=== PATIENT | male | born 1940 | race Caucasian/White ===

== ENCOUNTER 2016-06-21 06:16 | Day surgery (SDC) | payer MEDICARE, OTHER ==
[2016-06-21] MEDS ORDERED: LACTATED RINGERS 1,000 ML IV ONE (06:59)
[2016-06-21] MEDS ORDERED: KETOROLAC 0.45% OPHTH DROPS OPTH ONE (07:00)
[2016-06-21] MEDS ORDERED: CYCLOPENTOLATE 1% OPHTH DROPS 2 ML OPTH ONE (07:00)
[2016-06-21] MEDS ORDERED: TROPICAMIDE 1% OPHTH 2 ML DROPS OPTH ONE (07:00)
[2016-06-21] MEDS ORDERED: TRYPAN BLUE 0.5 ML SYRINGE IO ONE ×2 (08:50→09:20)
[2016-06-21] MEDS ORDERED: LACTATED RINGERS 500 ML IV ONE (09:04)
[2016-06-21] MEDS ORDERED: MIDAZOLAM 2 MG/2 ML VIAL IVP ONE (09:09)
[2016-06-21] MEDS ORDERED: EPINEPHrine 1 MG/ML AMP IO ONE (09:09)
[2016-06-21] MEDS ORDERED: fentaNYL 100 MCG/2 ML VIAL IVP ONE (09:09)
[2016-06-21] MEDS ORDERED: levoFLOXacin 0.5% OPHTH DROPS 5 ML OPTH ONE (09:09)
[2016-06-21] MEDS ORDERED: NEOMYCIN/POLYMYX/DEXAMETH OPHTH OINT OPTH ONE (09:09)
[2016-06-21] MEDS ORDERED: PROPARACAINE 0.5% OPHTH DROPS 15 ML OPTH ONE (09:09)
[2016-06-21] MEDS ORDERED: BRIMONIDINE 0.2% OPHTH DROPS 5 ML OPTH ONE (09:09)
[2016-06-21] MEDS ORDERED: TETRACAINE OPHTH DROPS 2 ML OPTH ONE (09:09)
[2016-06-21] MEDS ORDERED: CHONDR SULF/HYALURONATE SYRINGE IO ONE (09:09)
[2016-06-21] MEDS ORDERED: BSS/LIDOCAINE/EPINEPHRINE 1 ML SYRINGE IO ONE ×2 (09:12)
== END 2016-06-21 06:17 | disposition home or self-care (01) ==
PROC: 08RK3JZ Replacement of Left Lens with Synthetic Substitute, Percutaneous Approach (ICD-10-PCS; principal; 2016-06-21 07:30)
DX: H25.12 Age-related nuclear cataract, left eye (principal); I48.91 Unspecified atrial fibrillation; R06.00 Dyspnea, unspecified
CPT/HCPCS: 66982; J7120; V2632

== ENCOUNTER 2017-09-14 09:20 | Outpatient (CLI) | payer MEDICARE, OTHER ==
[2017-09-14 12:47] LABS: BASOPHILS # (AUTO) 0.1 10^3/uL (0.0-0.1); BASOPHILS % (AUTO) 1.4 %; EOSINOPHILS # (AUTO) 0.1 10^3/uL (0.0-0.7); EOSINOPHILS % (AUTO) 1.9 %; HGB - HEMOGLOBIN 15.1 g/dL (14.0-18.0); LYMPHOCYTES % (AUTO) 19.5 %; MEAN CORPUSCULAR HEMOGLOBIN 29.6 pg (27.0-31.0); MEAN CORPUSCULAR HGB CONC 33.6 g/dL (32.0-36.0); MEAN CORPUSCULAR VOLUME 88.2 fL (80.0-94.0); MEAN PLATELET VOLUME 9.5 fL (7.4-11.4); MONOCYTES # (AUTO) 0.9 10^3/uL (0.0-1.0); MONOCYTES % (AUTO) 16.6 %; NEUTROPHILS # (AUTO) 3.2 10^3/uL (1.5-6.6); NEUTROPHILS % (AUTO) 60.6 %; PLT - PLATELET COUNT 183 10^3/uL (130-450); RED BLOOD COUNT 5.09 10^6/uL (4.70-6.10); RED CELL DISTRIBUTION WIDTH 13.8 % (12.0-15.0); WHITE BLOOD COUNT 5.3 x10^3/uL (4.8-10.8)
[2017-09-14 12:51] LABS: ALBUMIN 3.9 g/dL (3.2-5.5); ALBUMIN/GLOBULIN RATIO 1.4 (1.0-2.2); TOTAL PROTEIN 6.7 g/dL (6.7-8.2)
[2017-09-14 13:01] LABS: THYROID STIMULATING HORMONE 2.51 uIU/mL (0.34-5.60)
== END 2017-09-14 09:21 | disposition home or self-care (01) ==
LOC: LAB.WCP 09:20
PROVIDERS: ATTEND Family Medicine
DX: R41.3 Other amnesia (principal)
CPT/HCPCS: 36415; 80053; 81599; 82607; 83921; 84443; 85025; 85651; 86592

== ENCOUNTER 2017-09-20 16:33 | Outpatient (CLI) | payer MEDICARE, OTHER ==
--- NOTE | 2017-09-21 09:22 | MRI Report ---
EXAM: MRI BRAIN WITHOUT CONTRAST EXAM DATE: 09/20/2017 05:17 PM. CLINICAL HISTORY: Confusion, disorientation and memory loss. Atrial fibrillation. COMPARISON: None. TECHNIQUE: Multiplanar, multisequence T1-weighted and fluid-sensitive MR sequences of the brain were performed. Sequences optimized for routine evaluation. Other: None. IV Contrast: None. FINDINGS: Brain Volume: Mild diffuse atrophy. Parenchyma/Dura: No restricted diffusion to suggest acute or recent ischemic infarct. There is no manuel dence for acute hemorrhage. In the right temporo-occipital region there is a punctate focus of GRE hy pointensity that may be a chronic/senescent microhemorrhage. No mass effect, midline shift or abnorma l subdural fluid collection. 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 Largest on the right p osteriorly is 5 mm. The largest on the left is about 6 mm. No evidence for previous cerebral hemisphere cortical ischemic infarct. Mild patchy and nodular bilateral cerebral white matter T2 hyperintense signal changes are present, c onsistent with aging and mild chronic multifocal small vessel ischemic white matter disease. Ventricles/Cisterns: No hydrocephalus. No abnormal extra-axial fluid collection or hemorrhage. Orbits: Prior bilateral lens extractions. Scleral buckle on the left. Sella Turcica: The pituitary gland, cavernous sinuses, suprasellar cistern and optic chiasm are unrem arkable. IAC: Symmetric and unremarkable. Vasculature: Normal signal flow void is seen in the major arterial structures at the skull base. Sinuses: No acute appearing sinus disease. Bones: No focal pathologic appearing marrow signal changes. Other: None. IMPRESSION: 1. No MRI evidence for acute intracranial abnormality. 2. 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 3. Mild diffuse cerebral atrophy. 4. Mild nonspecific chronic appearing cerebral white matter disease, likely from aging and chronic mi croangiopathy. [facility] Referring Provider Line: [phone] SITE ID: [id number]
== END 2017-09-20 16:34 | disposition home or self-care (01) ==
LOC: DI 16:33
PROVIDERS: ATTEND Family Medicine
DX: R41.3 Other amnesia (principal); I48.0 Paroxysmal atrial fibrillation
CPT/HCPCS: 70551

== ENCOUNTER 2017-09-27 12:55 | Outpatient (CLI) | payer MEDICARE, OTHER | END 2017-09-27 12:56 | disposition home or self-care (01) | LOC: DI 12:55 | PROVIDERS: ATTEND Internal Medicine Cardiovascular Disease | DX: I48.91 Unspecified atrial fibrillation (principal); Z86.79 Personal history of other diseases of the circulatory system; F99 Mental disorder, not otherwise specified; I35.9 Nonrheumatic aortic valve disorder, unspecified; R41.3 Other amnesia; I48.0 Paroxysmal atrial fibrillation; I38 Endocarditis, valve unspecified; Z95.4 Presence of other heart-valve replacement | CPT/HCPCS: 93306 ==

== ENCOUNTER 2017-09-27 14:25 | Emergency (ER) | payer MEDICARE, OTHER ==
[2017-09-27] MEDS ORDERED: SODIUM CHLORIDE 0.9% 1,000 ML IV ONE (15:16)
[2017-09-27] MEDS ORDERED: METOPROLOL 5 MG/5 ML VIAL IVP STA ×3 (15:16→15:49)
[2017-09-27 15:27] LABS: BASOPHILS # (AUTO) 0.1 10^3/uL (0.0-0.1); BASOPHILS % (AUTO) 1.2 %; EOSINOPHILS # (AUTO) 0.1 10^3/uL (0.0-0.7); EOSINOPHILS % (AUTO) 1.7 %; HGB - HEMOGLOBIN 15.5 g/dL (14.0-18.0); LYMPHOCYTES # (AUTO) 1.2 10^3/uL (1.5-3.5); LYMPHOCYTES % (AUTO) 18.2 %; MEAN CORPUSCULAR HEMOGLOBIN 29.2 pg (27.0-31.0); MEAN CORPUSCULAR VOLUME 88.3 fL (80.0-94.0); MEAN PLATELET VOLUME 9.3 fL (7.4-11.4); MONOCYTES % (AUTO) 14.7 %; NEUTROPHILS # (AUTO) 4.4 10^3/uL (1.5-6.6); NEUTROPHILS % (AUTO) 64.2 %; PLT - PLATELET COUNT 207 10^3/uL (130-450); RED BLOOD COUNT 5.33 10^6/uL (4.70-6.10); RED CELL DISTRIBUTION WIDTH 13.9 % (12.0-15.0); WHITE BLOOD COUNT 6.8 x10^3/uL (4.8-10.8)
[2017-09-27 15:38] LABS: ALBUMIN 3.9 g/dL (3.2-5.5); ALBUMIN/GLOBULIN RATIO 1.3 (1.0-2.2); BILIRUBIN,TOTAL 0.4 mg/dL (0.2-1.0); CALCIUM 8.8 mg/dL (8.5-10.3); MAGNESIUM 2.4 mg/dL (1.7-2.8); TOTAL PROTEIN 6.9 g/dL (6.7-8.2)
[2017-09-27] MEDS ORDERED: METOPROLOL TARTRATE 50 MG TABLET PO STA (16:06)
--- NOTE | 2017-09-27 16:17 | ED Physician Documentation ---
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 He had recently been tapered off Sotolol due to QT prolongation and had nothad atrial fib episodes. He was getting outpt echo and went into atrial fib rate 150s. He was feeling okay with just some lightheadedness. said he had similar with heart rate 140 lasting 6 minutes about 2 days ago. Otherwise is feeling okay. He is to do outpt heart monitor for 2 weeks starting tomorrow.) Timing - onset during: Light activity Timing - details: Abrupt onset, Still present Quality: Other (mild lightheadedness). No: Pressure, Tightness Improved by: Rest Worsened by: Exertion Associated symptoms: Feeling faint / dizzy, General Weakness. No: Shortness of air, Nausea, Palpitations, Cough Similar symptoms before: Diagnosis (atrial fib paroxysms) Recently seen: Clinic (cardiology a few weeks ago) Review of Systems Constitutional: denies: Fever, Chills Nose: denies: Rhinorrhea / runny nose, Congestion Throat: denies: Sore throat Cardiac: reports: Palpitations. denies: Chest pain / pressure, Pedal edema, Calf pain Respiratory: denies: Dyspnea, Cough GI: denies: Abdominal Pain, Nausea, Vomiting, Diarrhea Neurologic: denies: Focal weakness, Numbness, Difficulty speaking, Near syncope PD PAST MEDICAL HISTORY - Past Medical History Cardiovascular: Atrial fibrillation, Valve disorder, Other Respiratory: Shortness of breath, Other Endocrine/Autoimmune: None GI: None : Kidney stones, Other HEENT: Glaucoma, Chronic hearing loss Psych: None Musculoskeletal: None Derm: Other - Past Surgical History General: Colonoscopy Cardiovascular: Valve replacement HEENT: Cataracts - Present Medications Home Medications: Ambulatory Orders Medication Instructions Recorded Confirmed Aspirin [Aspir 81] 81 mg PO DAILY 07/29/14 06/21/16 Latanoprost [Xalatan] 2.5 ml LEFTEYE DAILY 07/29/14 06/21/16 Magnesium Oxide 400 mg PO DAILY 07/29/14 06/21/16 Multivitamin [Multivitamins] 1 each PO DAILY 07/29/14 06/21/16 Sotalol [Betapace] 40 mg PO BID 07/29/14 06/21/16 Timolol 0.5% Ophth Drops [Timoptic 1 drop EACHEYE DAILY 07/29/14 06/21/16 0.5% Ophth Drops] Metoprolol Tartrate [Lopressor] 25 mg PO BID #60 tablet 09/27/17 - Allergies Allergies/Adverse Reactions: Allergies Allergy/AdvReac Type Severity Reaction Status Date / Time No Known Drug Allergies Allergy Verified 07/29/14 10:31 - Social History Does the pt smoke?: No Smoking Status: Never smoker PD ED PE NORMAL - Vitals Vital signs reviewed: Yes - General General: Alert and oriented X 3, No acute distress, Well developed/nourished - Neck Neck: Supple, no meningeal sign, No adenopathy - Cardiac Cardiac: No murmur. 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 No: ST elevation c/w ischemia, ST depression repeat Rate: Rate (enter#) (64) Rhythm: NSR Intervals: Normal SC QRS: Normal Ischemia: Normal ST segments. No: ST elevation c/w ischemia, ST depression Compare to prior EKG: Changed from prior EKG - Labs Labs: Laboratory Tests 09/27/17 09/27/17 15:00 15:00 WBC 6.8 RBC 5.33 Hgb 15.5 Hct 47.0 MCV 88.3 MCH 29.2 MCHC 33.0 RDW 13.9 Plt Count 207 MPV 9.3 Neut # 4.4 Lymph # 1.2 L Brown # 1.0 Eos # 0.1 Baso # 0.1 Absolute Nucleated RBC 0.00 Nucleated RBC % 0.0 Sodium 137 Potassium 4.0 Chloride 106 Carbon Dioxide 25 Anion Gap 6.0 BUN 26 H Creatinine 1.0 Estimated GFR (MDRD) 72 L Glucose 99 Calcium 8.8 Magnesium 2.4 Total Bilirubin 0.4 AST 20 ALT 16 Alkaline Phosphatase 80 Total Protein 6.9 Albumin 3.9 Globulin 3.0 Albumin/Globulin Ratio 1.3 Lipase 33 PD MEDICAL DECISION MAKING - ED course Complexity details: reviewed results, re-evaluated patient, considered differential, d/w patient, d/w clinical application consultant (Dr. Brand (?) tactical air control party Cardiology - to start Lopressor 25 mg bid and still do heart monitor. ) Departure - Departure Disposition: Home, Self Care Clinical Impression: Paroxysmal atrial fibrillation with rapid ventricular response Condition: Stable Record reviewed to determine appropriate education?: Yes Instructions: ED Afib Follow-Up: Hector Prieto MD [Primary Care Provider] - Chano Santiago MD [Physician No Access] - Prescriptions: Metoprolol Tartrate [Lopressor] 25 mg PO BID #60 tablet Comments: Drink lots of fluids drink lots of fluids and other usual medicines. Add metoprolol 25 mg twice a day. Check your heart rate and blood pressure daily. If you find your heart rate to slow her blood pressure too low, then decrease to once a day. Continue with a heart monitor as scheduled. Follow-up with Dr. Santiago, call his office to find out the appointment time they would prefer. Recheck if recurrent problems.
[2017-09-27 16:33] VITALS: BP 107/70
== END 2017-09-27 16:40 | disposition home or self-care (01) ==
LOC: ED 14:25
DX: I48.0 Paroxysmal atrial fibrillation (principal); Z95.2 Presence of prosthetic heart valve; Z79.82 Long term (current) use of aspirin; Z86.79 Personal history of other diseases of the circulatory system; F99 Mental disorder, not otherwise specified; I35.9 Nonrheumatic aortic valve disorder, unspecified; R41.3 Other amnesia; I38 Endocarditis, valve unspecified; Z95.4 Presence of other heart-valve replacement
CPT/HCPCS: 36415; 80053; 83690; 83735; 85025; 93005; 93306; 96361; 96374; 99283; 99284; A9270

== ENCOUNTER 2017-10-04 19:12 | Outpatient (CLI) | payer MEDICARE, OTHER ==
--- NOTE | 2017-10-07 12:40 | Ultrasound Report ---
CAROTID DUPLEX: 10/04/2017 INDICATION: Memory loss. TECHNIQUE: Real-time sonographic vascular imaging was performed by the scientific manager through the carotid arteries utilizing both color-flow and Doppler spectral analysis. Multiple sales representative marine supplies static images were saved for review. RIGHT Vessel PSV cm/sec EDV cm/sec ICA/CCA RSV Ratio Degree of Stenosis Plaque Estimate % RCCA Prox 105 -- -- RCCA Dist 75 14 -- RECA 34 -- -- RT BULB 42 11 0.6 KRUPA Prox 77 17 1.0 KRUPA Mid 103 27 1.4 KRUPA Dist 57 13 0.8 RVA 40 -- -- RVA flow direction: Antegrade LEFT Vessel PSV cm/sec EDV cm/sec ICA/CCA RSV Ratio Degree of Stenosis Plaque Estimate % LCCA Prox 94 -- -- LCCA Dist 88 18 -- LECA 93 -- -- LFT BULB 41 5 0.5 LICA Prox 93 25 1.1 LICA Mid 133 34 1.5 LICA Dist 106 29 1.2 LVA 28 -- -- LVA flow direction: Antegrade Velocity criteria are extrapolated from diameter data as defined by the Society of Radiologists in Ultrasound Consensus Conference Radiology 2003; 229; 340-346. Degree of Stenosis % ICA PSV cm/sec ICA EDV cm/sec ICA/CCA PSV Ratio Plaque Estimate % Normal < 125 < 40 < 2.0 None <50 < 125 < 40 < 2.0 < 50 50-69 125-130 40-100 2.0-4.0 >/=50 >/=70 but less than near occlusion > 230 > 100 > 4.0 >/=50 Near occlusion High, low or undetectable Variable Variable Visible Total occlusion Undetectable Not applicable Not applicable No detectable lumen FINDINGS RIGHT: There is calcified plaquing in the right carotid bifurcation, without evidence of a focal hemodynamically significant carotid stenosis by velocity criteria. LEFT: There is calcified plaquing in the left carotid bifurcation, without evidence of a focal hemodynamically significant stenosis by velocity criteria. The vertebral arteries demonstrate antegrade flow bilaterally. IMPRESSION: CALCIFIED PLAQUING BILATERALLY, WITHOUT EVIDENCE OF A FOCAL HEMODYNAMICALLY SIGNIFICANT CAROTID STENOSIS BY VELOCITY CRITERIA. TD: 10/05/2017 10:13 [facility]
== END 2017-10-04 19:13 | disposition home or self-care (01) ==
LOC: DI 19:12
PROVIDERS: ATTEND Family Medicine
DX: I65.21 Occlusion and stenosis of right carotid artery (principal)
CPT/HCPCS: 93880

== ENCOUNTER 2017-11-19 10:53 | Outpatient (CLI) | payer MEDICARE, OTHER | END 2017-11-19 10:54 | disposition home or self-care (01) | LOC: SC 10:53 | PROVIDERS: ATTEND Internal Medicine Pulmonary Disease | DX: G47.10 Hypersomnia, unspecified (principal); G47.8 Other sleep disorders; R06.83 Snoring | CPT/HCPCS: 99203; G0463; 99212 ==

== ENCOUNTER 2017-12-18 20:21 | Outpatient (CLI) | payer MEDICARE, OTHER | END 2017-12-18 20:22 | disposition home or self-care (01) | LOC: SC 20:21 | PROVIDERS: ATTEND Internal Medicine Pulmonary Disease | DX: G47.33 Obstructive sleep apnea (adult) (pediatric) (principal); G47.61 Periodic limb movement disorder | CPT/HCPCS: 95810 ==

== ENCOUNTER 2017-12-31 13:09 | Outpatient (CLI) | payer MEDICARE, OTHER | END 2017-12-31 13:10 | disposition home or self-care (01) | LOC: SC 13:09 | PROVIDERS: ATTEND Nurse Practitioner Family | DX: G47.33 Obstructive sleep apnea (adult) (pediatric) (principal); I49.9 Cardiac arrhythmia, unspecified; G47.61 Periodic limb movement disorder | CPT/HCPCS: 99214; G0463; 99212 ==

== ENCOUNTER 2018-10-02 15:35 | Outpatient (CLI) | payer MEDICARE, OTHER ==
--- NOTE | 2018-10-03 13:03 | XRAY Report ---
Reason: COUGH Procedure Date: 10/02/2018 Accession Number: [id number] / [id number] Procedure: WCP - Chest 2 View X-Ray CPT Code: 70777 FULL RESULT: EXAM: CHEST RADIOGRAPHY EXAM DATE: 10/02/2018 03:47 PM. CLINICAL HISTORY: Cough, shortness of breath. COMPARISON: CHEST 2 VIEW PA/LAT 03/21/2017 2:10 PM. TECHNIQUE: 2 views. FINDINGS: Lungs/Pleura: Minimal to small mild focal opacities in the left lung base and likely with minimal amount of left pleural effusion evident. No right pleural effusion. No right pneumothorax. Mediastinum: Heart and mediastinal contours are unremarkable. Other: Postop changes of sternotomy for CABG again noted, unremarkable. There is a new left subclavian pacemaker with 2 cardiac leads ending in the right atrial appendage in the right ventricle. IMPRESSION: 1. Imaging artifact versus interval new small left basilar opacity and minimal left pleural effusion. Focal mild infiltrative process cannot be excluded. Otherwise, negative for cardiomegaly or pulmonary edema. Recommend continued chest x-ray in 2 weeks and follow up in 4-5 weeks, if clinically warranted. 2. Interval status post left subclavian pacemaker implant, unremarkable. [facility]
== END 2018-10-02 15:36 | disposition home or self-care (01) ==
LOC: DI.WCP 15:35
PROVIDERS: ATTEND Family Medicine
DX: R05 Cough (principal); Z95.0 Presence of cardiac pacemaker
CPT/HCPCS: 71046

== ENCOUNTER 2018-10-17 11:24 | Outpatient (CLI) | payer MEDICARE, OTHER ==
--- NOTE | 2018-10-17 11:14 | XRAY Report ---
Reason: PNEUMONIA,LEFT LOWER LOBE Procedure Date: 10/17/2018 Accession Number: [id number] / [id number] Procedure: WCP - Chest 2 View X-Ray CPT Code: 80716 FULL RESULT: EXAM: CHEST RADIOGRAPHY EXAM DATE: 10/17/2018 11:07 AM. CLINICAL HISTORY: Follow-up abnormal chest x-ray. Possible pneumonia. COMPARISON: CHEST 2 VIEW 10/02/2018 3:33 PM. TECHNIQUE: 2 views. FINDINGS: Lungs/Pleura: No focal opacities evident. No pleural effusion. No pneumothorax. Normal volumes. Mediastinum: Heart and mediastinal contours are unremarkable. Other: None. IMPRESSION: Normal 2-view chest radiography. [facility]
== END 2018-10-17 23:59 | disposition home or self-care (01) ==
LOC: DI.WCP 11:24
PROVIDERS: ATTEND Family Medicine
DX: J18.9 Pneumonia, unspecified organism (principal)
CPT/HCPCS: 71046

== ENCOUNTER 2022-07-18 11:45 | Outpatient (CLI) | payer MEDICARE, OTHER ==
[2022-07-18 18:16] LABS: CALCIUM 9.1 mg/dL (8.5-10.3); CREATININE 1.2 mg/dL (0.6-1.2); POTASSIUM 4.6 mmol/L (3.5-5.0)
== END 2022-07-18 12:00 | disposition home or self-care (01) ==
LOC: LAB.N 11:45
PROVIDERS: ATTEND Registered Nurse
DX: U07.1 COVID-19 (principal)
CPT/HCPCS: 36415; 80048